=== PATIENT | male | born 1995 | race Asian ===

== ENCOUNTER 2019-02-07 21:34 | Emergency (ER) | payer OTHER ==
[2019-02-07 21:44] VITALS: BP 139/77
--- NOTE | 2019-02-07 21:48 | EDPHY ---
H & P Stated Complaint: right knee injury in soccer Time Seen by Provider: 02/07/19 21:47 HPI/ROS: HPI: This is a 23-year-old male who presents with Chief Complaint: Right knee injury while playing soccer Location: Right knee Quality: Injury Duration: Prior to arrival Signs and Symptoms: No bleeding, no radiation, no numbness, no weakness, no tingling, no incontinence, + decreased range of motion, + swelling, + pain, no fever Timing: Acute, Resolved Severity: Moderate Context: Patient is a student at [employer], playing soccer when 2 opponents hit his right knee in opposite directions. He reports he felt immediate, constant, severe and nonradiating pain. He immediately fell to the ground and noticed his knee cap "to the outside." When he relaxed his thigh muscle the " knee cap went back into place." He felt immediate relief. Applied ice. He complains of mild discomfort when he flexes his right knee. Denies LOC/head injury/neck pain/dizziness/nausea/vomiting/amnesia/weakness. Modifying Factors: Ice pack Comment: ROS: A comprehensive 10 system review of systems is otherwise negative aside from elements mentioned in the history of present illness. MEDICAL/SURGICAL/SOCIAL HISTORY: Medical history: History of right shoulder dislocation. Does not take any regular medications. Surgical history: Right shoulder surgery Social history: Never smoked. Student at [employer]. Denies drug use. CONSTITUTIONAL: Polite and cooperative male, awake and alert, no obvious distress HEENT: Atraumatic and normocephalic, PERRL, EOMI. Nares patent; no rhinorrhea; no nasal mucosal edema. Tympanic membranes clear. Oropharynx clear, no exudate and moist pink mucosa. Airway patent. No lymphadenopathy. No meningismus. Cardiovascular: Normal S1/S2, regular rate, regular rhythm, without murmur rub or gallop. PULMONARY/CHEST: Symmetrical and nontender. Clear to auscultation bilaterally. Good air movement. No accessory muscle usage. ABDOMEN: Soft, nondistended, nontender, no rebound, no guarding, no peritoneal signs, no masses or organomegaly. No CVAT. EXTREMITIES: 2/2 pulses, strength 5/5, right KNEE: No patellar hypermobility, mild effusion, no medial and lateral joint line tenderness, full extension to 180, flexion to 90. Mild pain with varus and valgus exam. Mild pain with anterior drawer or posterior drawer test. Extensor mechanism intact. no deformities, no clubbing, no cyanosis or edema. NEUROLOGICAL: no focal neuro deficits. GCS 15. SKIN: Warm and dry, no erythema. no rash. Good capillary refill. Source: Patient Exam Limitations: No limitations - Personal History Current Tetanus/Diphtheria Vaccine: Yes Current Tetanus Diphtheria and Acellular Pertussis (TDAP): Yes - Medical/Surgical History Hx Asthma: No Hx Chronic Respiratory Disease: No Hx Diabetes: No Hx Cardiac Disease: No Hx Renal Disease: No Hx Cirrhosis: No Hx Alcoholism: No Hx HIV/AIDS: No Hx Splenectomy or Spleen Trauma: No Other PMH: right shoulder surgery - Social History Smoking Status: Never smoked Constitutional: Initial Vital Signs Temperature (C) 37.2 C 02/07/19 21:41 Heart Rate 94 02/07/19 21:41 Respiratory Rate 16 02/07/19 21:41 Blood Pressure 139/77 H 02/07/19 21:41 O2 Sat (%) 96 02/07/19 21:41 O2 Delivery Mode Room Air Allergies/Adverse Reactions: No Known Allergies Allergy (Unverified 02/07/19 21:43) Home Medications: Medication Instructions Recorded NK [No Known Home Meds] 02/07/19 Medical Decision Making - Diagnostics Imaging Results: Imaging Impressions Knee X-Ray 02/07/19 21:52 Impression: Mild prepatellar soft tissue swelling with a small suprapatellar joint effusion, and no acute osseous abnormality. The patellofemoral joint is anatomically-aligned following self reduction. Procedures: Procedure: Splint placement. A right knee immobilizer was applied. After application of the splint I returned and re-examined the patient. The splint was adequately immobilizing the joint and distal to the splint the patient's circulation and sensation was intact. ED Course/Re-evaluation: Vital signs reviewed and stable upon arrival. Ice pack applied and right knee x-ray ordered Knee x-ray my read shows small prepatellar effusion but no patellar dislocation , no fracture. Placed in knee immobilizer, crutches, orthopedic follow-up No signs of neurovascular compromise/tenting of skin/compartment syndrome/ extremities and joints examined above and below area of concern and are neurovascularly intact. This patient was seen under the supervision of my secondary supervising physician. I evaluated and cared for this patient with attending. Differential Diagnosis: Knee injury while [] including but not limited to fracture, ACL injury, contusion, muscular strain, and meniscus injury. Departure - Departure Disposition: Home, Routine, Self-Care Clinical Impression: Dislocation of patella, right, closed Qualifiers: Encounter type: initial encounter Qualified Code(s): S83.004A - Unspecified dislocation of right patella, initial encounter Condition: Good Instructions: Crutch Instructions (ED), Knee Dislocation (ED), Knee Immobilizer (ED) Additional Instructions: Wear the knee immobilizer while out of bed until pain free or seen by Orthopedics. Use crutches to aid ambulation. Start with toe-touch weight-bearing status and slowly advance as tolerated. Take Tylenol 650 mg every 4 hours and/or Ibuprofen 600 mg every 8 hours with food as needed for pain. Apply ice for 30 minutes at a time; 2-3 times per day for the next 1-2 days. Follow up with Orthopedics in 1-2 weeks if symptoms persist at which time they will evaluate and recommend with you if conservative management versus MRI is indicated. The x-rays obtained in the emergency department today demonstrate no evidence of an obvious fracture. Referrals: Valeriano Cat MD [Medical Doctor] - As per Instructions
== END 2019-02-07 22:58 | disposition home or self-care (01) ==
DX: S83.004A Unspecified dislocation of right patella, initial encounter (principal); W50.0XXA Accidental hit or strike by another person, initial encounter; Y93.66 Activity, soccer
CPT/HCPCS: L1830